=== PATIENT | male | born 1940 | race Two or more races ===

== ENCOUNTER 2017-11-26 21:00 | Inpatient (IN) | payer OTHER ==
[~2017-11-26] VITALS: Ht 160 cm; Wt 83.5 kg
[~2017-11-26 21:00] MED LIST: ADVAIR 2501 DISK W/1 IH; LEVAQUIN750 MG PO; LOSARTAN POTASS50 MG PO; MEDROLPACK PO; NO TOMA MEDICAMENTOS; PROAIR HFA8.5 GM IH; SYMBICORT 16010.2 GM IH
[2017-12-02] MEDS ORDERED: ALBUTEROL SULFAT2 MG PO (18:40)
[2017-12-02] MEDS ORDERED: SYMBICORT 16010.2 GM IH (18:40)
== END 2017-12-02 20:45 | disposition home or self-care (01) | DRG 292 ==
LOC: ER 21:00 → MEDI 11-27 09:29
PROC: 3E0F7GC Introduction of Other Therapeutic Substance into Respiratory Tract, Via Natural or Artificial Opening (ICD-10-PCS; principal; 2017-11-27)
PROC: 4A033R1 Measurement of Arterial Saturation, Peripheral, Percutaneous Approach (ICD-10-PCS; 2017-11-28)
PROC: B246ZZZ Ultrasonography of Right and Left Heart (ICD-10-PCS; 2017-11-28)
PROC: 4A12X4Z Monitoring of Cardiac Electrical Activity, External Approach (ICD-10-PCS; 2017-11-29)
DX: I11.0 Hypertensive heart disease with heart failure (principal); J44.1 Chronic obstructive pulmonary disease with (acute) exacerbation; I16.1 Hypertensive emergency; I50.33 Acute on chronic diastolic (congestive) heart failure; I27.29 Other secondary pulmonary hypertension; F17.210 Nicotine dependence, cigarettes, uncomplicated

== ENCOUNTER → 2017-12-09 07:18 | Outpatient (CLI) | payer OTHER ==
[~2017-12-09 07:18] MED LIST changes: +ALBUTEROL SULFAT2 MG PO
== END | disposition home or self-care (01) ==
LOC: LAB 07:18
DX: D50.0 Iron deficiency anemia secondary to blood loss (chronic) (principal); E11.65 Type 2 diabetes mellitus with hyperglycemia; E78.2 Mixed hyperlipidemia; E03.0 Congenital hypothyroidism with diffuse goiter; E55.9 Vitamin D deficiency, unspecified; K62.5 Hemorrhage of anus and rectum; N40.0 Benign prostatic hyperplasia without lower urinary tract symptoms; N39.0 Urinary tract infection, site not specified; M81.0 Age-related osteoporosis without current pathological fracture; R10.84 Generalized abdominal pain; Z12.11 Encounter for screening for malignant neoplasm of colon

== ENCOUNTER 2018-04-05 19:29 | Emergency (ER) | payer OTHER ==
[~2018-04-05] VITALS: Ht 165.1 cm; Wt 72.6 kg
[2018-04-06] MEDS ORDERED: XOPENEX0.63 MG/3 IH (17:56)
[2018-04-06] MEDS ORDERED: Theo-24 PO (17:56)
[2018-04-06] MEDS ORDERED: IPRATROPIU0.2 MG/1 M IH (17:56)
[2018-04-06] MEDS ORDERED: ZITHROMAX200 MG PO (17:56)
[2018-04-06] MEDS ORDERED: Tussi-Organidin Dm-S PO (17:56)
[2018-04-06] MEDS ORDERED: POLY119PG PO (17:57)
== END 2018-04-06 18:42 | disposition home or self-care (01) ==
LOC: ER 19:29
DX: J44.1 Chronic obstructive pulmonary disease with (acute) exacerbation (principal); R10.84 Generalized abdominal pain; J11.1 Influenza due to unidentified influenza virus with other respiratory manifestations; Z72.0 Tobacco use

== ENCOUNTER 2018-11-21 14:11 | Outpatient (CLI) | payer OTHER ==
[~2018-11-21 14:11] MED LIST changes: +IPRATROPIU0.2 MG/1 M IH; +POLY119PG PO; +Theo-24 PO; +Tussi-Organidin Dm-S PO; +XOPENEX0.63 MG/3 IH; +ZITHROMAX200 MG PO
== END 2018-11-21 14:32 | disposition home or self-care (01) ==
LOC: TOM 14:11
DX: R10.9 Unspecified abdominal pain (principal)

== ENCOUNTER 2021-10-29 08:00 | Outpatient (CLI) | payer OTHER | END 2021-10-29 08:02 | disposition home or self-care (01) | LOC: TOM 08:00 | PROVIDERS: ATTEND Internal Medicine | DX: D50.8 Other iron deficiency anemias (principal); R19.5 Other fecal abnormalities ==

== ENCOUNTER 2021-11-27 11:09 | Outpatient (CLI) | payer OTHER | END 2021-11-27 13:44 | disposition home or self-care (01) | LOC: LAB 11:09 | PROVIDERS: ATTEND Urology | DX: N30.00 Acute cystitis without hematuria (principal) ==

== ENCOUNTER → 2022-04-22 | Outpatient (CLI) | payer OTHER | END | disposition home or self-care (01) | LOC: RAD 12:09 | PROVIDERS: ATTEND Internal Medicine | DX: M54.17 Radiculopathy, lumbosacral region (principal); N20.0 Calculus of kidney; N40.0 Benign prostatic hyperplasia without lower urinary tract symptoms; D50.8 Other iron deficiency anemias; I73.9 Peripheral vascular disease, unspecified; I87.2 Venous insufficiency (chronic) (peripheral); E55.9 Vitamin D deficiency, unspecified; F17.210 Nicotine dependence, cigarettes, uncomplicated; E11.69 Type 2 diabetes mellitus with other specified complication; I27.29 Other secondary pulmonary hypertension; F41.1 Generalized anxiety disorder; J44.9 Chronic obstructive pulmonary disease, unspecified; K57.51 Diverticulosis of both small and large intestine without perforation or abscess with bleeding ==

== ENCOUNTER 2022-12-11 09:54 | Emergency (ER) | payer OTHER ==
[~2022-12-11] VITALS: Ht 162.6 cm; Wt 75.7 kg
[2022-12-11] MEDS ORDERED: TAMS0.4C PO (13:48)
[2022-12-11] MEDS ORDERED: STOOL SOFTENER50 MG PO (13:48)
== END 2022-12-11 14:20 | disposition home or self-care (01) ==
LOC: ER 09:54
DX: J44.1 Chronic obstructive pulmonary disease with (acute) exacerbation (principal); N20.0 Calculus of kidney; N39.0 Urinary tract infection, site not specified; K57.92 Diverticulitis of intestine, part unspecified, without perforation or abscess without bleeding; R32 Unspecified urinary incontinence; Z88.0 Allergy status to penicillin; J45.901 Unspecified asthma with (acute) exacerbation

== ENCOUNTER 2023-02-01 09:15 | Outpatient (CLI) | payer OTHER ==
[~2023-02-01 09:15] MED LIST changes: +STOOL SOFTENER50 MG PO; +TAMS0.4C PO
== END 2023-02-01 09:17 | disposition home or self-care (01) ==
LOC: RAD 09:15
PROVIDERS: ATTEND Internal Medicine
DX: M54.17 Radiculopathy, lumbosacral region (principal)

== ENCOUNTER 2023-02-12 11:15 | Outpatient (CLI) | payer OTHER | END 2023-02-12 11:33 | disposition home or self-care (01) | LOC: MRI 11:15 | PROVIDERS: ATTEND Internal Medicine | DX: M54.17 Radiculopathy, lumbosacral region (principal) | CPT/HCPCS: 72148 ==

== ENCOUNTER 2023-06-12 16:09 | Emergency (ER) | payer OTHER ==
[~2023-06-12] VITALS: Ht 157.5 cm; Wt 77.1 kg
[2023-06-12 17:20] LABS: HEMATOCRIT 39.1 % (39.0-48.0); HEMOGLOBIN 12.9 g/dL (13-16.00); MEAN CELL VOLUME 100.9 fL (80.0-100.00); MEAN CORPUSCULAR HEMOGLOBIN 33.4 pg (27.00-32.0); MEAN CORPUSCULAR HGB CONC 33.1 g/dl (32.0-36.0); PLATELET COUNT 217 K/uL (150-450); RED BLOOD COUNT 3.87 M/uL (4.00-6.00); RED CELL DISTRIBUTION WIDTH 15.8 % (11.5-14.5)
[2023-06-12 17:36] LABS: INR 0.98; PARTIAL THROMBOPLASTIN TIME 34.9 SECONDS (22.0-34.0); PROTHROMBIN TIME 10.3 SECONDS (9.0-11.5)
[2023-06-12 18:15] LABS: ABG PH 7.418 (7.35-7.45); ABG PO2 80.1 mmHg (80-100); ABG pCO2 45.2 mmHg (35-45); BASE EXCESS 3.4 mmol/l; BICARBONATE 28.5 mmol/l (23-25); SaO2 96.1 %
== END 2023-06-12 19:16 | disposition home or self-care (01) ==
LOC: ER 16:10
PROVIDERS: General Practice
DX: R04.0 Epistaxis (principal); Z88.0 Allergy status to penicillin

== ENCOUNTER 2023-06-13 12:54 | Emergency (ER) | payer OTHER ==
[~2023-06-13] VITALS: Ht 157.5 cm; Wt 73.5 kg
[2023-06-13 14:34] LABS: CALCIUM 8.7 mg/dL (8.5-10.1); CREATININE SERUM 0.83 mg/dL (0.70-1.30); GFR 88.27; POTASSIUM 3.72 mEq/L (3.5-5.1)
[2023-06-13 14:44] LABS: HEMATOCRIT 35.9 % (39.0-48.0); HEMOGLOBIN 11.7 g/dL (13-16.00); MEAN CELL VOLUME 101.2 fL (80.0-100.00); MEAN CORPUSCULAR HEMOGLOBIN 32.9 pg (27.00-32.0); MEAN CORPUSCULAR HGB CONC 32.5 g/dl (32.0-36.0); PLATELET COUNT 208 K/uL (150-450); RED BLOOD COUNT 3.55 M/uL (4.00-6.00); RED CELL DISTRIBUTION WIDTH 15.2 % (11.5-14.5)
[2023-06-13 14:48] LABS: INR 1.04; PARTIAL THROMBOPLASTIN TIME 37.6 SECONDS (22.0-34.0); PROTHROMBIN TIME 10.9 SECONDS (9.0-11.5)
== END 2023-06-13 16:37 | disposition home or self-care (01) ==
LOC: ER 12:54
PROVIDERS: General Practice
DX: R04.0 Epistaxis (principal)

== ENCOUNTER 2025-05-18 09:24 | Outpatient (CLI) | payer OTHER | END 2025-05-18 09:25 | disposition home or self-care (01) | LOC: NUCLEAR 09:24 | PROVIDERS: ATTEND Internal Medicine | DX: R06.09 Other forms of dyspnea (principal) ==